=== PATIENT | male | born 1965 | race Caucasian/White ===

== ENCOUNTER 2019-03-03 17:00 | Emergency (ER) | payer BC, OTHER ==
[2019-03-03 17:18] VITALS: BP 178/116
--- NOTE | 2019-03-03 17:38 | EDM.PDOC ---
ED HPI GENERAL MEDICAL PROBLEM - General Chief Complaint: Headache Stated Complaint: SEVERE HEADACHE Time Seen by Provider: 03/03/19 17:13 Source of Information: Reports: Patient, RN Notes Reviewed History Limitations: Reports: No Limitations - History of Present Illness INITIAL COMMENTS - FREE TEXT/NARRATIVE: The patient states that he has had a severe headache, felt from the back of his neck, around the top and sides of his head to his eyes - essentially his entire head - since 02/23/2019. He describes the character is throbbing and intense. It waxes and wanes. He feels better if he sits up, worse if he moves or turns his head or lies supine. He has not had any nausea or vomiting. No visual changes. No tingling, numbness, or weakness. No photophobia or phonophobia. The patient states that he gets a headache about twice a week, but they are usually mild. He states that he has never had a headache like this. The patient states that he saw his PCP on the same day that his headache began, 02/23/2019. He states the blood work was done, revealing an elevated hemoglobin and elevated cholesterol. He was prescribed gabapentin, but primarily for chronic generalized body pain related to his diabetic neuropathy. He states that the gabapentin has not helped his headache. The patient states that he took 8 Tylenols today, but that he has not been otherwise treating his headache. The patient's PCP is Dr. Pablito Puente. Headache Pain Score (Numeric/FACES): 10 - Related Data Allergies Allergy/AdvReac Type Severity Reaction Status Date / Time No Known Allergies Allergy Verified 03/03/19 17:11 Home Meds: Home Meds Gabapentin [Neurontin] 300 mg PO TID 03/03/19 [History] Orphenadrine [Norflex] 1 tab PO Q12H PRN #14 tab.er 03/03/19 [Rx] Past Medical History Cardiovascular History: Reports: High Cholesterol (untreated) Gastrointestinal History: Reports: Colon Polyp Musculoskeletal History: Reports: Arthritis, Neck Pain, Chronic Neurological History: Reports: Headaches, Chronic, Neuropathy, Diabetic Endocrine/Metabolic History: Reports: Diabetes, Type II, Obesity/BMI 30+ Hematologic History: Reports: Polycythemia - Past Surgical History GI Surgical History: Reports: Colonoscopy (x 1), EGD (x 2) Endocrine Surgical History: Reports: Other (See Below) (Thyroid cyst excised) Musculoskeletal Surgical History: Reports: Carpal Tunnel (bilateral), Shoulder Surgery (bilateral, arthroscopic) Social & Family History - Tobacco Use Smoking Status *Q: Current Every Day Smoker Years of Tobacco use: 35 Packs/Tins Daily: 1 - Caffeine Use Caffeine Use: Reports: None - Alcohol Use Alcohol Use History: Yes Alcohol Use Frequency: Rarely - Recreational Drug Use Recreational Drug Use: Yes Drug Use in Last 12 Months: Yes Recreational Drug Type: Reports: Marijuana/Hashish (last smoked January 2019) - Living Situation & Occupation Living situation: Reports: , with Spouse Occupation: Employed ("Self-employed") ED ROS GENERAL - Review of Systems Review Of Systems: ROS reveals no pertinent complaints other than HPI. - Physical Exam Exam: See Below Exam Limited By: No Limitations General Appearance: Alert, WD/WN, No Apparent Distress Eye Exam: Bilateral Eye: EOMI, Normal Inspection, PERRL Ears: Normal External Exam, Hearing Grossly Normal Nose: Normal Inspection Throat/Mouth: Normal Inspection, Normal Lips, Normal Voice, No Airway Compromise Head Exam: Atraumatic, Normocephalic Neck: Normal Inspection, Full Range of Motion Respiratory/Chest: No Respiratory Distress, Lungs Clear, Normal Breath Sounds, No Accessory Muscle Use Cardiovascular: Normal Peripheral Pulses, Regular Rate, Rhythm, No Gallop, No JVD, No Murmur, No Rub GI/Abdominal: Normal Bowel Sounds, Soft, Non-Tender, No Organomegaly, No Distention, No Abnormal Bruit, No Mass, Other (Obese) (Male) Exam: Deferred Rectal (Males) Exam: Deferred Neuro Exam (Abbreviated): Alert, Oriented, CN II-XII Intact, Normal Cognition, No Motor/Sensory Deficits, Other (Right hand wekness - chronic) Back Exam: Normal Inspection, Full Range of Motion, NT Extremities: Normal Inspection, Normal Range of Motion, No Pedal Edema, Normal Capillary Refill Psychiatric: Normal Affect Skin Exam: Warm, Dry, Intact, Normal Color, No Rash Course - Vital Signs Last Recorded V/S: Last Vital Signs Temp 36.3 C 03/03/19 17:17 Pulse 83 03/03/19 17:17 Resp 15 03/03/19 17:17 BP 178/116 H 03/03/19 17:17 Pulse Ox 99 03/03/19 17:17 - Orders/Labs/Meds Orders: Active Orders 24 hr Category Date Time Status Accu Check [Blood Glucose Check, Bedside] [RC] ONETIME Care 03/03/19 17:31 Active Head wo Cont [CT] Stat Exams 03/03/19 17:31 Taken Meds: Medications Discontinued Medications Generic Name Dose Route Start Last Admin Trade Name Aminta PRN Reason Stop Dose Admin Orphenadrine Citrate 100 mg 03/03/19 18:08 03/03/19 18:12 Norflex PO 03/03/19 18:09 100 mg ONETIME STA Administration - Re-Assessments/Exams Free Text/Narrative Re-Assessment/Exam: 03/03/19 17:33 Based on the patient's history and physical examination, his headache appears to be tension-type (he has no features of an intra-cranial hemorrhage or of a migraine), however, given the severity and duration of his headache, I want to be certain that he does not have an intracerebral tumor, despite his normal neurologic examination. I have therefore ordered a CT scan of the head without contrast. If normal, I will start the patient on a muscle relaxant. The patient is agreeable with this plan. 03/03/19 18:25 Accu-Chek was 120. CT of the head without contrast is read by [facility] as "No acute intracranial abnormality." As above, I will treat the patient for a tension-type headache with Norflex. The patient states that he has an appointment to follow-up with Dr. Puente this coming 03/07/2019. Departure - Departure Time of Disposition: 18:28 Disposition: Home, Self-Care 01 Condition: Good Clinical Impression: Tension type headache - Discharge Information *PRESCRIPTION DRUG MONITORING PROGRAM REVIEWED*: Not Applicable *COPY OF PRESCRIPTION DRUG MONITORING REPORT IN PATIENT JORGE: Not Applicable Referrals: Pablito Puente MD [Primary Care Provider] - Forms: ED Department Discharge Additional Instructions: You were seen in the emergency room for a severe headache since Tuesday, 2018. Workup in the ER included a CT scan of your head, which returned unremarkable. Based on your history, physical exam, and CT scan results, her headache is most likely a tension-type headache. You have been started on the muscle relaxant Norflex. A prescription for Norflex has been sent to the [facility]. Take one tablet of Norflex every 12 hours, starting tomorrow morning, 03/04/2019, as prescribed. In addition to Norflex, you may also take [id number] Tylenol. Stay adequately hydrated. Follow-up with your PCP, Dr. Dorian Puente, at your previously scheduled appointment this coming 03/07/2019. If any other problems, please do not hesitate to return to the ER. - My Orders Last 24 Hours: My Active Orders 03/03/19 17:31 Accu Check [Blood Glucose Check, Bedside] [RC] ONETIME Head wo Cont [CT] Stat - Assessment/Plan Last 24 Hours: My Active Orders 03/03/19 17:31 Accu Check [Blood Glucose Check, Bedside] [RC] ONETIME Head wo Cont [CT] Stat
[2019-03-03] MEDS ORDERED: Orphenadrine 100 MG Tab.ER PO STA (18:08)
--- NOTE | 2019-03-05 06:35 | CT ---
Head CT Technique: Multiple axial sections through the brain were obtained. Intravenous contrast was not utilized. Comparison: No prior intracranial imaging is available. Findings: Ventricles along with basal cisterns and sulci over the convexities are within normal limits for the patient's age. No abnormal parenchymal densities are seen. No evidence of intracranial hemorrhage. No midline shift or mass effect is seen. Bone window settings were reviewed which show no acute calvarial abnormality. Small rounded retention cyst is incidentally noted within the left sphenoid sinus. No acute sinus findings are seen. Impression: 1. Small retention cyst which is believed to be incidental within the left sphenoid sinus. 2. Nothing acute is appreciated on noncontrast head CT exam. Diagnostic code #2 I agree with preliminary report from [facility], finalized on 03/03/19, 7:16 PM Central Time
== END 2019-03-03 18:43 | disposition home or self-care (01) ==
LOC: JD.ED 17:00
DX: G44.209 Tension-type headache, unspecified, not intractable (principal); E78.00 Pure hypercholesterolemia, unspecified; F17.210 Nicotine dependence, cigarettes, uncomplicated; E11.9 Type 2 diabetes mellitus without complications; Z79.899 Other long term (current) drug therapy
CPT/HCPCS: 70450; 82962; 99284; A9270